=== PATIENT | female | born 1970 | race African-American/Black ===

== ENCOUNTER 2021-03-05 21:00 | Emergency (ER) | payer OTHER ==
[~2021-03-05] VITALS: Ht 157.5 cm; Wt 94.8 kg
[~2021-03-05 21:00] MED LIST: ALEVE220 M1 PO; HYDROCODONE-AP1 EAC6 PO; ZOFRAN ODT4 MG PO
[2021-03-05] MEDS ORDERED: HYDROCORTISONE3011 TOP (22:52)
[2021-03-05] MEDS ORDERED: LISINOPRIL-HCT1 EAC2 PO (22:52)
[2021-03-05] MEDS ORDERED: PREMARIN0.625 MG PO (22:53)
[2021-03-05 22:59] VITALS: BP 184/98
--- NOTE | 2021-03-06 16:25 | EKG ---
[address] [place] [address] ELECTROCARDIOGRAM REPORT Name: SIMBA FLANAGAN Room #: [facility]ora#: [id number] Admission: 03/05/21 Attend Phys: Discharge: 03/05/21 Date of : 70 Report #: [id number] [facility] ED Test Date: 2021-03-05 Test Time: 22:46:57 Pat Name: SIMBA FLANAGAN Department: Room: Gender: F Carpet Measurer: Husam CATHERINE : 1970 Requested By: Sukumar Alvarado Order Number: [id number] MD: Tesfaye aJde Measurements Intervals Lovely Rate: 80 P: 44 CO: 145 QRS: 65 QRSD: 89 T: 60 QT: 396 QTc: 457 Interpretive Statements Sinus rhythm Probable left atrial enlargement No previous ECG available for comparison Electronically Signed On 03-06-2021 16:25:24 CDT by Tesfaye Jade [email or web address] <ELECTRONICALLY SIGNED> By: Tesfaye Jade MD, [facility] 03/06/21 1625 [id number] Tesfaye Jade MD, FACC /EPI
== END 2021-03-05 22:58 | disposition home or self-care (01) ==
LOC: ER 21:00
DX: R00.2 Palpitations (principal); R05 Cough; N80.9 Endometriosis, unspecified; I10 Essential (primary) hypertension; Z79.899 Other long term (current) drug therapy